=== PATIENT | female | born 1970 | race Caucasian/White ===

== ENCOUNTER → 2018-12-07 | Outpatient (CLI) | payer BC, OTHER ==
[2017-05-18 16:00] VITALS: BMI 29.8
[~2018-12-07] MED LIST: AMOX-559 PO; DIPH-740 PO; HYDR1CAP15 PO; IOPAMIDOL 76% 100 ML INFUS BTL 100 ML ONE; MULT-1335 PO; NAPR220C12 PO; PSYL0.5235 PO; RIV10 PO; [UNRECOGNIZED DRUG - CODE] PO
--- NOTE | 2018-12-07 09:34 | RADIOLOGY IMAGING REPORT ---
[place] [facility] [place] Dee Krishnamurthy : 1970 MR: [id number] V: [id number] EXAM DATE: ORDERING PHYSICIAN: EDDIE ELKINS TECHNOLOGIST: Location: [facility] Patient: Dee Krishnamurthy : 1970 Visit/Account:[id number] Date of Sevice: 12/07/2018 CT ABDOMEN PELVIS W/ CON COMPARISON: None. HISTORY: Left lower quadrant bump felt by patient. Left lower quadrant pain.. TECHNIQUE: Axial CT abdomen and pelvis with intravenous contrast. Coronal and sagittal reformats. O ne of the following dose optimization techniques was utilized in the performance of this exam: autom ated exposure control; adjustment of the mA and/or kV according to patient size; or use of iterative reconstruction technique. Specific details can be referenced in the facility's radiology CT exam ope rational policy. CONTRAST: 75 mL of IV Isovue-370. FINDINGS: LUNG BASES: Negative. LIVER: Negative. BILIARY: Negative. SPLEEN: Negative. PANCREAS: Negative. ADRENALS: Negative. KIDNEYS: Negative. GI/MESENTERY: There is no bowel wall thickening, mass or obstruction. There is a large hernia contai alin mesenteric fat protruding through the left rectus abdominis muscle at the site of scarring/fat s tranding which extended to the skin on the previous study, suggesting it may be an incisional hernia. The herniated fat itself is new from the previous study, currently measuring 2 x 4 cm at its neck, o verall measuring 2.4 x 8.3 x 6.7 cm, with mild internal fat stranding. This is caudal and just to the left of the umbilicus. VASCULAR: Minimal vascular calcifications. LYMPH NODES: Negative. BLADDER: Negative. PELVIC ORGANS: Negative. BONES: Mild lower thoracic spine, moderate lower lumbar spine degenerative changes. Right hip prosth esis with adjacent streak artifact. Moderate left hip osteoarthritis. OTHER: Negative. IMPRESSION: 1. Large hernia containing mesenteric fat with mild internal fat stranding, just caudal to and to th e left of the umbilicus. This is probably an incisional hernia protruding through the medial margin o f the rectus abdominis muscle. Mild diffuse fat stranding within this might account for pain. 2. No acute bowel pathology. 3. Degenerative changes in the spine. 4. Minimal vascular calcifications. Report Dictated By: Kirill Hedrick at 12/07/2018 8:48 AM Report E-Signed By: Kirill Herdick at 12/07/2018 9:28 AM WSN:[id number]
== END ==
LOC: CT 00:47
PROVIDERS: ATTEND Nurse Practitioner Family
DX: R10.32 Left lower quadrant pain (principal)
CPT/HCPCS: 74177; Q9967

== ENCOUNTER → 2018-12-28 | Outpatient (CLI) | payer BC ==
[2017-05-18 16:00] VITALS: BMI 29.8
[~2018-12-28] MED LIST changes: -IOPAMIDOL 76% 100 ML INFUS BTL 100 ML ONE
[2018-12-28 09:22] LABS: PLATELET COUNT, AUTOMATED 229 K/uL (150-450)
--- NOTE | 2018-12-28 09:51 | EKG ---
[facility] PATIENT NAME: BETTY PIPER : [id number] MR: [id number] V: [id number] EXAM DATE: ORDERING PHYSICIAN: HSLOMO VASQUEZ TECHNOLOGIST: KRISTEN Test Reason : PRE OP Blood Pressure : / mmHG Vent. Rate : 084 BPM Atrial Rate : 084 BPM P-R Int : 156 ms QRS Dur : 086 ms QT Int : 370 ms P-R-T Axes : -30 147 -12 degrees QTc Int : 437 ms Sinus rhythm Left posterior fascicular block Abnormal QRS-T angle, consider primary T wave abnormality Abnormal ECG When compared with ECG of 09-APR-2013 08:38, Nonspecific T wave abnormality now evident in Inferior leads Confirmed by Denis Nicholson ([id number]) on 12/28/2018 10:35:19 PM Referred By: CHRISTINA Confirmed By:Denis Iverson
== END ==
LOC: LAB 09:00
PROVIDERS: ATTEND Orthopaedic Surgery
DX: Z01.812 Encounter for preprocedural laboratory examination (principal); Z01.810 Encounter for preprocedural cardiovascular examination; M16.11 Unilateral primary osteoarthritis, right hip; R94.31 Abnormal electrocardiogram [ECG] [EKG]
CPT/HCPCS: 36415; 81001; 82040; 82247; 82310; 82374; 82435; 82565; 82947; 84075; 84132; 84155; 84295; 84450; 84460; 84520; 85025; 86850; 86900; 86901; 93005

== ENCOUNTER 2019-01-30 00:24 | Observation (INO) | payer BC ==
[~2019-01-30] VITALS: Ht 157.5 cm; Wt 73.5 kg
[2019-01-30] VITALS (11 sets, daily range): BP systolic 119–156; BP diastolic 69–110
[~2019-01-30 00:24] MED LIST changes: +ACET-2146 PO; +ASPI-1471 PO; +CHOL10005 PO; +LORA5TAB16 PO; +RANI-54 PO
[2019-01-30] MEDS ORDERED: ceFAZolin(*) 2GM/D5W 50ML 50 ML IVPB ONE (07:30)
[2019-01-30] MEDS ORDERED: fentaNYL CITR 100 MCG/2 ML AMP ONE ×4 (09:40→14:20)
[2019-01-30] MEDS ORDERED: DEXAMETHASONE SOD PHOS 10MG/ML ONE (09:41)
[2019-01-30] MEDS ORDERED: ONDANSETRON 4 MG/2 ML VIAL ONE (09:41)
[2019-01-30] MEDS ORDERED: PROPOFOL EMUL(*) 10MG/ML 20 ML 20 ML ONE (09:41)
[2019-01-30] MEDS ORDERED: KETAMINE HCL-NS 50 MG/5 ML SYR ONE (09:41)
[2019-01-30] MEDS ORDERED: LIDOCAINE 2% IV 100 MG/5ML SYR ONE (09:45)
[2019-01-30] MEDS ORDERED: ROCURONIUM BR 10 MG/ML 5 ML SY 5 ML ONE (09:45)
[2019-01-30] MEDS ORDERED: NORMOSOL R SOLN(*) 1000 ML BAG 1,000 ML IV PRN (10:10)
[2019-01-30] MEDS ORDERED: FAMOTIDINE 20 MG TAB PO ONE (10:10)
[2019-01-30] MEDS ORDERED: LIDOCAINE/SOD BICARB 8.4% SYR ID ONE (10:10)
[2019-01-30] MEDS ORDERED: MIDAZOLAM 2 MG/2 ML VIAL IVP PRN (10:10)
[2019-01-30] MEDS ORDERED: BUPIVACAINE/EPI 0.5% 50ML VIAL INFIL ONE (10:58)
[2019-01-30] MEDS ORDERED: HYDR-654 PO (11:16)
[2019-01-30] MEDS ORDERED: SUGAMMADEX SOD 200 MG/2 ML SDV ONE (13:04)
[2019-01-30] MEDS ORDERED: ACETAMINOPHEN(*)1000 MG/100 ML 100 ML IVPB ONE (13:39)
[2019-01-30] MEDS ORDERED: HYDROmorphone HCL 2 MG/ML SDV ONE (13:45)
--- NOTE | 2019-01-30 13:54 | Short(Outpt) Discharge Summary ---
Discharge Summary Reason for Hosp/Final Diag: (1) Ventral hernia Hospital Course & Plan: pt presented for ventral hernia repair. she tolerated the procedure well and will be discharged home when criteria met. Departure Discharge to: Home Discharge Instructions Home Meds Active Scripts Hydrocodone Bit/Acetaminophen (NORCO 7.5-325 TABLET) 1 Each Tablet, 1 EACH PO Q4H PRN for PAIN, #30 TAB Prov:YINKA VALDEZ 01/30/19 Reported Medications Ranitidine Hcl (ZANTAC) 150 Mg Tablet, 150 MG PO BID PRN for INDIGESTION, TAB 01/29/19 Acetaminophen 500 Mg Tab (ACETAMINOPHEN EXTRA STRENGTH) 500 Mg Tablet, 500 MG PO HS, TAB 01/29/19 Aspirin (ASPIR 81) 81 Mg Tablet.dr, 81 MG PO QDAY, TAB 01/29/19 Loratadine (CLARITIN) 5 Mg Tab.rapdis, 5 MG PO DAILY 01/18/19 Discontinued Reported Medications Aspirin (ASPIR 81) 81 Mg Tablet.dr, 325 MG PO QDAY, TAB 01/18/19 Cholecalciferol (Vitamin D3) (VITAMIN D3) 1,000 Unit Tablet, 1000 UNIT PO, TAB 01/18/19 Psyllium Husk (FIBER) 0.52 Gm Capsule, 0.52 GM PO DAILY, CAPSULE 04/23/13 Hydrocodone Bit/Acetaminophen (HYDROCODON-ACETAMINOPHEN 5-500) 1 Each Capsule, 1 TAB PO Q4H PRN for PAIN, CAPSULE 04/23/13 Multivitamin With Minerals (MULTIPLE VITAMIN) 1 Each Tablet, 1 EACH PO DAILY 04/23/13 Diet: Regular Activity: No Heavy Lifting Special Instructions: no lifting more than 15 lbs for 6 wks. ok to shower tomorrow. take stool softener while taking pain meds. f/u dr. noreen valdez 2 wks ([phone]). YINKA VALDEZ Jan 30, 2019 13:54
--- NOTE | 2019-01-30 13:55 | Post Operative Progress Note ---
Post Operative Progress Note Date: Jan 30, 2019 Time: 13:50 Surgeon: dr. noreen valdez Director Of Community Life: none Anesthesia: gen, local Pre-Op Diagnosis: ventral hernia Post-Op Diagnosis: same Procedure(s): robotic ventral hernia repair with mesh Complications: none Estimated Blood Loss: minimal YINKA VALDEZ Jan 30, 2019 13:55
--- NOTE | 2019-01-30 14:52 | OPERATIVE REPORT 1 ---
EVENT DATE: January 30, 2019 SURGEON: Mir Springer MD ANESTHESIOLOGIST: Antonio Manzo MD ANESTHESIA: General and local. BRAND SALES CONSULTANT: None. PREOPERATIVE DIAGNOSIS Incisional ventral hernia in left lower quadrant position. POSTOPERATIVE DIAGNOSIS Incisional ventral hernia in left lower quadrant position. PROCEDURE PERFORMED Robotic ventral hernia repair with mesh. INTRAVENOUS FLUIDS Crystalloid. ESTIMATED BLOOD LOSS Minimal. SPECIMENS None. COMPLICATIONS None. INDICATIONS This is a 48-year-old female with a hernia in the left lower quadrant of the abdominal wall, likely from an appendectomy incision. It is bothersome to her. Risks and benefits of the procedure were explained, and consent was signed. DESCRIPTION OF PROCEDURE The patient was taken to the operating room and placed in the supine position. General anesthesia was administered per the anesthesia team. Patient was prepped and draped in normal sterile fashion. Local analgesia was injected below her costal margin. A small incision was made. Optiview technique was used to easily enter the abdomen with a 5 mm port. Pneumoperitoneum was achieved. After injecting local analgesia and under direct vision, an 8 mm right lower quadrant port and an 8 mm right-sided port above this were placed. The right upper quadrant port was exchanged for an 8 mm port under direct vision. A 15 x 10 Symbotex mesh was rolled and placed, as were several V-Loc stitches. The robot was then docked. Hernia sac was removed. It was later removed from the abdomen. Hemostasis was assured. An absorbable V-Loc stitch was used to close the hernia defect. The mesh was then secured with running absorbable V-Loc stitches on the perimeter as well as down the middle. Hemostasis was again assured. The robot was undocked. All skin incisions were closed with 4-0 Monocryl subcuticular stitches. More local analgesia was injected. Appropriate dressings were applied. Patient tolerated the procedure well. There were no complications. MTDD
[2019-01-30] MEDS ORDERED: APAP/HYDROCODONE 325/7.5 TAB PO ONE (15:05)
[2019-01-30] MEDS ORDERED: NS(*) 0.9% 1000 ML BAG 1,000 ML ONE (17:12)
[2019-01-30] MEDS: NS(*) 0.9% 1000 ML BAG 1,000 ML IV PRN (17:28)
[2019-01-30] MEDS ORDERED: HYDROmorphone HCL 2 MG/ML SDV IVP PRN (17:55)
[2019-01-30] MEDS ORDERED: ONDANSETRON 4 MG/2 ML VIAL IVP PRN (17:55)
[2019-01-30] MEDS ORDERED: PROMETHAZINE 25 MG/ML 1 ML AMP IVP PRN (17:55)
[2019-01-30] MEDS: KETOROLAC 30 MG/ML VIAL IVP SCH ×2 (18:00→23:46)
--- NOTE | 2019-01-30 18:21 | NUR ---
1645- ATTEMPTED TO DO ORTHOSTATICS AND PT. IN TOO MUCH PAIN TO DO MUCH MORE THAN STAND. JUST STANDING IN ONE SPOT HER PAIN WENT UP TO A 8/10. DR. FREEMAN CALLED AND ORDERS WERE GIVEN TO ADMIT THE PT. 172- NEW IV STARTED; OLD IV CATH CAME OUT A SMALL AMOUNT AND THEN THE IV WAS NO GOOD SO OLD IV REMOVED WITH CATH INTACT AND PRESSURE DRESSING APPLIED. 175- PT. TRANSFERED TO MED/SURG VIA STRETCHER ACCOMPANIED BY ANNE DAVIDSON. REPORT GIVEN TO SANDRA DAVIDSON. SEE DISCHARGE ASSESSMENT
[2019-01-30] MEDS: APAP/HYDROCODONE 325/7.5 TAB PO PRN (20:15)
[2019-01-30] MEDS: DOCUSATE SODIUM 100 MG CAP PO SCH (21:15)
[2019-01-31 03:27] VITALS: BP 141/90
[2019-01-31] MEDS: NS(*) 0.9% 1000 ML BAG 1,000 ML IV PRN (03:30)
[2019-01-31] MEDS: APAP/HYDROCODONE 325/7.5 TAB PO PRN ×2 (03:31→08:00)
[2019-01-31] MEDS: KETOROLAC 30 MG/ML VIAL IVP SCH ×2 (05:28→11:27)
[2019-01-31 06:17] LABS: PLATELET COUNT, AUTOMATED 233 K/uL (150-450)
[2019-01-31 07:25] VITALS: BP 122/81
[2019-01-31] MEDS: DOCUSATE SODIUM 100 MG CAP PO SCH (08:00)
--- NOTE | 2019-01-31 10:18 | Short(Outpt) Discharge Summary ---
Discharge Summary Reason for Hosp/Final Diag: (1) Ventral hernia Hospital Course & Plan: pt presented for ventral hernia repair. she tolerated the procedure well and will be discharged home when criteria met. 01/31/19: pain well controlled. feels ready to go home. ambulating. d/c home. Departure Discharge to: Home Discharge Instructions Home Meds Active Scripts Hydrocodone Bit/Acetaminophen (NORCO 7.5-325 TABLET) 1 Each Tablet, 1 EACH PO Q4H PRN for PAIN, #30 TAB Prov:YINKA SPRINGER 01/30/19 Reported Medications Ranitidine Hcl (ZANTAC) 150 Mg Tablet, 150 MG PO BID PRN for INDIGESTION, TAB 01/29/19 Acetaminophen 500 Mg Tab (ACETAMINOPHEN EXTRA STRENGTH) 500 Mg Tablet, 500 MG PO HS, TAB 01/29/19 Aspirin (ASPIR 81) 81 Mg Tablet.dr, 81 MG PO QDAY, TAB 01/29/19 Loratadine (CLARITIN) 5 Mg Tab.rapdis, 5 MG PO DAILY 01/18/19 Discontinued Reported Medications Aspirin (ASPIR 81) 81 Mg Tablet.dr, 325 MG PO QDAY, TAB 01/18/19 Cholecalciferol (Vitamin D3) (VITAMIN D3) 1,000 Unit Tablet, 1000 UNIT PO, TAB 01/18/19 Psyllium Husk (FIBER) 0.52 Gm Capsule, 0.52 GM PO DAILY, CAPSULE 04/23/13 Hydrocodone Bit/Acetaminophen (HYDROCODON-ACETAMINOPHEN 5-500) 1 Each Capsule, 1 TAB PO Q4H PRN for PAIN, CAPSULE 04/23/13 Multivitamin With Minerals (MULTIPLE VITAMIN) 1 Each Tablet, 1 EACH PO DAILY 04/23/13 Diet: Regular Activity: No Heavy Lifting Special Instructions: No lifting more than 15 lbs for 6 weeks. Ok to shower.Take stool softener while taking pain meds. Follow up with Dr. Nathanael Springer 2 weeks ([phone]). YINKA SPRINGER Jan 31, 2019 10:18
[2019-01-31 12:33] VITALS: Ht 157.5 cm; Wt 73.5 kg
== END 2019-01-31 10:17 | disposition home or self-care (01) ==
LOC: OR 00:24 → MED 17:55
PROVIDERS: ADMIT Surgery; ATTEND Surgery
DX: K43.2 Incisional hernia without obstruction or gangrene (principal)
CPT/HCPCS: 36415; 49654; 81025; 85025; G0378; J0131; J1100; J1170; J1885; J2001; J2250; J2405; J2704; J3010; J3490; J7030; S2900; C1781; J0690